=== PATIENT | male | born 1940 | race Caucasian/White ===

== ENCOUNTER 2016-09-14 07:06 | Day surgery (SDC) | payer MEDICARE ==
[~2016-09-14] VITALS: Ht 170.2 cm; Wt 95.3 kg
--- NOTE | ~2016-09-14 | CATH ---
Cardiac Diagnostic Report Demographics Patient Name ALICIA SHEA Gender Male Date of 1940 Age 76 year(s) Patient Number [id number] Date of Study 09/14/2016 Visit Number [id number] Room Number Corporate ID Ht 170.18 cm Wt 95.71 kg Accession Number [id number] BSA 2.07 m kg/m Referring Chris Saez Primary Physician Physician Yvonne Orozco MD Performing Yvonne Orozco Secondary Physician Physician Diagnostic Yvonne Orozco Assisting Physician Physician Interventional Physician User Support Analyst Physician Findings and Conclusions Diagnostic Findings and Conclusion Severe two vessel coronary artery disease. 80% distal left main. EDP 9mmHG. Diagnostic Recommendations Refer for CABG. Procedure Description The patient was brought to the diagnostic cardiac catheterization laboratory in the fasting, non-sedated state. Informed consent was obtained in the written and verbal form after the risks and benefits were explained. The patient had no further questions and agreed to proceed. The planned puncture-incision site(s) were clipped and prepped with ChloraPrep and draped in the usual sterile manner. Conscious sedation, supplemental oxygen, and pain control medications were delivered by a registered nurse under physician guidance. Surface ECG rhythm, blood pressure measurement, and pulse oximetry were monitored throughout the procedure. Arterial access. The right radial access site was infiltrated with lidocaine. The vessel was entered with the Seldinger technique. A 6F sheath was advanced into the vessel and used for catheter placement. Left heart catheterization. A JR4 catheter was advanced across the aortic valve to the left ventricle under fluoroscopic guidance. Resting hemodynamics were obtained. LV pressure was obtained. The catheter was gradually withdrawn into the aorta with continuous pressure recording. Selective right coronary angiography. A JR4 catheter was advanced into the right coronary vessel ostium under fluoroscopic guidance. Contrast was injected by hand. Images were obtained in multiple projections. Selective left coronary angiography. A JL3.5 catheter was advanced into the left coronary vessel ostium under Fluoroscopic guidance. Contrast was injected by hand. Images were obtained in multiple projections. Hemostasis: The sheath was removed and a TR Band was placed. Hemostasis was achieved. The patient was transferred to a regular nursing floor via cart accompanied by a nurse. The patient left the laboratory in stable condition. Procedure Procedure Type Diagnostic procedure:Angiography:, Coronary Angios w/[facility] Indications: Hyperlipidemia, Hypertension, Abnormal Stress Test, Chest pain, Diabetes, Tobacco use-prior and Previous stent placement. The procedure was explained in detail to the patient. Risks, complications and alternative treatments were reviewed. Written consent was obtained. Medications Reviewed with Patient prior to Procedure. Complications: Non complication. Angiographic Findings Dominance: Mixed Cardiac Arteries and Lesion Findings LMCA: Abnormal. Lesion on LMCA: Distal subsection.80% stenosis . LAD: Abnormal. Lesion on Prox LAD: 40% stenosis . Lesion on 1st Diag: Mid subsection.50% stenosis . Lesion on 1st Diag: Distal subsection.80% stenosis . LCx: Abnormal.There is a previous stent on 1st Ob Faiza showing diffuse ISR. There is a previous stent on Dist CX showing diffuse ISR. Lesion on Prox CX: Ostial.90% stenosis . Lesion on Dist CX: 50% stenosis . The lesion was previously treated on 05/15/2002 with the following techniques: non drug eluting stent. 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 Lesion on 1st Ob Faiza% stenosis . The lesion was previously treated on 05/15/2002 with the following techniques: non drug eluting stent. 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 Lesion on 1st Ob Faiza: Distal subsection.80% stenosis . Lesion on 3rd Ob Faiza: Proximal subsection.80% stenosis . Lesion on 1st LPL: 99% stenosis . RCA: Abnormal. Lesion on Prox RCA: 80% stenosis .Chronic total occlusion. Lesion on Mid RCA: 100% stenosis .Chronic total occlusion. Cardiac Collaterals - collateral flow from the Dist LAD to the pDSP-R. - collateral flow from the Prox RCA to the Dist RCA. Coronary Tree Procedure Data Procedure Date Date: 09/14/2016Start: 08:24 AMEnd: 09:04 AM Entry Locations - Percutaneous access was performed through the Right Radial artery (Primary location). A 6 Fr sheath was inserted. Hemostasis was successfully obtained using a TR band. Procedure Medications Order and Administration + + +-------+--------+ !Time !Medication !Dosage !Route ! + + +-------+--------+ !09/14/2016 !Versed !2 mg !I.V. ! !08:17 AM ! ! ! ! + + +-------+--------+ !09/14/2016 !Fentanyl !25 mcg !I.V. ! !08:17 AM ! ! ! ! + + +-------+--------+ !09/14/2016 !Sodium Chloride !10 ml !I.V. ! !08:17 AM ! ! ! ! + + +-------+--------+ !09/14/2016 !Oxygen !2 l/min!NC ! !08:25 AM ! ! ! ! + + +-------+--------+ !09/14/2016 !SF Radial Cocktail: 200mcg Nitro, 2.5 mg ! !I.A. ! !08:28 AM !Verapamil, 5000u Heparin ! ! ! + + +-------+--------+ Devices Used - A6 FrCATH 6F FR4 CATHETER 100CMwas used for:RightsideCoronary Angios. - A6 FrCATH 6FR FL3.5 CATHETER 100CMwas used for:LeftsideCoronary Angios. Contrast Material - Isovue 87912 ml Fluoroscopy Time: Diagnostic: 5:48 minutes. Total: 5:48 minutes. Fluoroscopy Dose: Diagnostic: 858 mGy. Total: 858 mGy. Estimated Blood Loss: 8 ml. Medical History Allergies - No known allergies. Risk Factors The patient risk factors include:prior PCI on 05/14/2002;treated hypercholesterolemia, treated hypertension, orally-treated diabetes mellitus, last creatinine: 1.1 mg/dl, creatinine clearance: 79.76 ml/min, dyslipidemia and former tobacco use. Admission Data Admission Date: 09/14/2016 Admission Time: 07:06 AM Insurance Payors: Medicare. Clinical Evaluation Leading to Procedure Diagnosed on 09/14/2016 07:30 AM. - The patient's CAD presentation was assessed as: Unstable angina. - The patient's anginal syndrome during the past two weeks was assessed as: Class IV according to the [place] Cardiovascular Society Classification System (CCS). Hemodynamics Condition: Rest O2 Consumption: Estimated: 240.22Heart Rate: 72 bpm Pressures (mmHg) +-----+ + !Site !Pressure ! +-----+ + !AO !77/39 (55) ! +-----+ + !LV !84/6 ,9 ! +-----+ + !AO !85/46 (58) ! +-----+ + !LV !87/7 ,12 ! +-----+ + Valve Gradients and Areas + +---------+---------+---------+ +---------+ + !Valve !Peak !Mean !Area !Index !Flow !Source ! + +---------+---------+---------+ +---------+ + !Aortic !2 !0 ! ! ! ! ! + +---------+---------+---------+ +---------+ + !Aortic !2 !0 ! ! ! ! ! + +---------+---------+---------+ +---------+ + Shunts Oxygen Values O2 Capacity 199.92 O2 Consumption 240.22 Discharge Data Discharge Date: 09/14/2016 Hospital Status: Outpatient Signatures
== END 2016-09-14 11:35 | disposition home or self-care (01) ==
LOC: SSS 07:06
DX: I25.110 Atherosclerotic heart disease of native coronary artery with unstable angina pectoris (principal); I10 Essential (primary) hypertension; K21.9 Gastro-esophageal reflux disease without esophagitis; E78.5 Hyperlipidemia, unspecified; E11.9 Type 2 diabetes mellitus without complications; F41.9 Anxiety disorder, unspecified; F32.9 Major depressive disorder, single episode, unspecified; J44.9 Chronic obstructive pulmonary disease, unspecified; Z87.891 Personal history of nicotine dependence; Z79.82 Long term (current) use of aspirin; Z79.899 Other long term (current) drug therapy

== ENCOUNTER 2016-09-14 21:42 | Emergency (ER) | payer MEDICARE ==
--- NOTE | 2016-09-15 12:40 | ER ---
ADMIT: 09/14/2016 RM/LOC: [facility] MR#: [id number] [address] [facility] [address] [place] [id number] [place] [address] Emergency Room Report SEX: M AGE: 76 : 1940 DATE: 09/14/2016 For chief complaint, history of present illness, past medical history, medications, allergies, review of systems, including physical exam, please see my T-sheet. INTERIM HISTORY: The patient is a 76-year-old male, who presents to the emergency with chest pain that started 3 hours ago. This morning, he had a heart cath done by Dr. Alonso Russell here, was determined to have disease in the LAD. He is scheduled to come down to [facility] on for potential bypass. The patient states he has had pain like this before, but this is much more intense. He did get diaphoretic, short of breath. The patient reports no known history of coronary disease until the heart cath today. The patient does have a history of diabetes. MEDICATIONS: Include aspirin. Please see the list in the chart. ALLERGIES: NONE. SOCIAL HISTORY: The patient lives at home with his . PHYSICAL EXAMINATION: VITAL SIGNS: Blood pressure is 145/palp, heart rate is 96, respirations 24, temp is afebrile. GENERAL: The patient is alert, he is diaphoretic, he is pale. He exhibits symptoms of acute coronary syndrome. HEENT: Negative. HEART: Regular. LUNGS: Have mild wheezes throughout and he has labored respirations. ABDOMEN: Obese, nontender. No guarding. Bowel sounds are present x4 quadrants. LABORATORY AND IMAGING DATA: Initially EKG was obtained, which was suspicious for ischemia with ST depression in the ventricular leads. I did contact Dr. Russell upon obtaining the EKG, and he did evaluate the patient here in the Emergency Department. Subsequent laboratory evaluation was obtained, which does show an elevated troponin of 0.274, BNP is elevated. I have not seen that remainder of the labs. Chest x-ray was obtained as well. EMERGENCY DEPARTMENT COURSE: Upon arrival, the patient received 2 IVs. He received nitroglycerin, which did relieve his pain. He is uncertain where it started up, but almost gone to a 3. The patient received a total of 3 sublingual nitroglycerin and then assumed a nitroglycerin drip. The patient also got aspirin here in the Emergency Department, and morphine. The patient has been resting more comfortably. A repeat EKG after Dr. Russell arrived did show slight improvement, but persistent ST depression in the ventricular leads. Dr. Russell has made contact with his colleagues at [facility], and have arranged for the patient to be transferred to the [facility]. The patient received a 5000 unit bolus of heparin as well as a nitroglycerin drip and has been comfortable here in the Emergency Department ADMIT: 09/14/2016 RM/LOC: [facility] MR#: [id number] [address] [place] [phone] SHABBIR VARGAS [address] [place] [address] Emergency Room Report SEX: M AGE: 76 : 1940 since. [facility] will transfer the patient via 911. Here in the emergency room stay, his blood pressure did come down with the sublingual nitroglycerin and the patient has been much more comfortable here. IMPRESSION: Acute ischemia with known coronary disease with an abnormal heart cath this morning. PLAN: Transfer to [facility] via 911. The patient remained stable during the stay in the Emergency Department and is stable for transfer. Dr. Alonso Russell did feel out the COBRA forms. The patient is in stable condition at this time. Critical care time is approximately 15 minutes. RANDI Polo / Rashawn Dahl MD / dustin JOB #: [id number] CC: Rashawn Dahl MD, Attending Physician Alonso Russell MD, Family Physician
--- NOTE | 2016-09-24 17:29 | CO ---
ADMIT: 09/14/2016 RM/LOC: [facility] MR#: [id number] [address] [facility] [address] [place] [id number] RYAN VARGAS [address] [place] [id number] Consultation SEX: M AGE: 76 : 1940 DATE OF CONSULTATION: 09/14/2016 ATTENDING PHYSICIAN: Rashawn Dahl MD CONSULTING PHYSICIAN: Alonso Russell MD CONSULT: From the emergency room. INDICATIONS: Chest pain and EKG changes. HISTORY OF PRESENT ILLNESS: Ryan is a 76-year-old, diabetic with known coronary disease having had previous stents to the circumflex territory many years ago. I recently saw him in the office with some ongoing chest discomfort. It was concerning for angina. He had had a stress test suggesting lateral infarct, but no ischemia. He was tentatively set up for heart catheterization, but he was reluctant because of concerns of payment. Despite that, he showed up this morning for his heart catheterization without confirming that he was going to follow through. His heart catheterization this morning showed severe 2-vessel disease of the circumflex and the right coronary artery and what appears to be a codominant system. He also had significant left main disease. I actually had him set up to see the surgeon on for consideration of bypass. He said he was doing well after he went home from his heart catheterization today until about 6:00 this evening. He started having burning substernal chest pain along with shortness of breath. He said this is similar to what he has been having. He said he did not want to have "another night like I had the other night" and came into the emergency room. He is mildly pale. He is not diaphoretic. He is alert. His EKG showed diffuse ST depression in the lateral leads and across the anterior precordium. His pain improved with morphine and nitroglycerin. His EKG improved with less ST depression, but still ischemic EKG changes. PAST MEDICAL HISTORY: Positive for his coronary disease and diabetes. His medications and rest of his history is unchanged. SOCIAL AND FAMILY HISTORY: Unchanged. REVIEW OF SYSTEMS: A limited cardiovascular system was performed and noncontributory other than above. PHYSICAL EXAMINATION: VITAL SIGNS: His pulse was 88, his blood pressure is 132/60. Respirations are 18. He is afebrile. SKIN: Pale otherwise warm dry and well perfused. EYES: Sclerae clear. No xanthelasmas. ENT: I do not hear any bruits, do not appreciate any JVD. CHEST: There are diffuse coarse wheezes throughout. Symmetric respirations. HEART: Distant. It is regular. I do not appreciate any murmurs, rubs, or gallops. ADMIT: 09/14/2016 RM/LOC: [facility] MR#: [id number] [address] [id number] RYAN VARGAS [address] [place] [address] Consultation SEX: M AGE: 76 : 1940 ABDOMEN: Obese, nontender. I do not appreciate any significant murmurs, rubs, or gallops. EXTREMITIES: There is no edema. Distal pulses are decreased, but symmetric. MUSCULOSKELETAL: Gait is normal. PSYCHIATRIC: He is in some mild distress, but alert and oriented, accompanied by his . LABORATORY DATA: Initial lab shows a potassium of 3.6, creatinine 1.2, glucose is 265. CK is 51. His troponin is 0.275. IMPRESSION: 1. Known severe coronary artery disease. 2. Recurrent chest pain with ST depression. 3. Diabetes. RECOMMENDATIONS: I think he is globally ischemic with his left main disease and high-grade ostial disease, which continues to be symptomatic with dynamic EKG changes. [facility], and if he is not improved by that point, I think he will need a consideration of a balloon pump and possibly even repeat his coronary angiogram to make sure he still has flow especially down his circumflex. I have contacted the surgeon at the [facility] and the ingredient specialist, and they are in agreement. Currently, his pain is much improved. [facility] [employer] is already in the emergency room for transfer. I did discuss the procedure with art including potential risk and benefits and discussed the seriousness of his condition. He seems surprised, but states understanding. Alonso Russell MD/ dustin JOB #: [id number] CC: Rashawn Dahl MD, Attending Physician Alonso Russell MD, Family Physician
== END 2016-09-14 22:48 | disposition short-term general hospital (02) ==
LOC: ER 21:42
PROC: 0T9B70Z Drainage of Bladder with Drainage Device, Via Natural or Artificial Opening (ICD-10-PCS; principal; 2016-09-14)
DX: I21.3 ST elevation (STEMI) myocardial infarction of unspecified site (principal); I25.9 Chronic ischemic heart disease, unspecified; E11.9 Type 2 diabetes mellitus without complications; Z79.82 Long term (current) use of aspirin; Z79.899 Other long term (current) drug therapy